=== PATIENT | female | born 1995 | race Caucasian/White ===

== ENCOUNTER 2018-11-25 15:51 | Emergency (ER) | payer OTHER | END 2018-11-25 19:30 | disposition home or self-care (01) | LOC: JER 15:51 ==

== ENCOUNTER 2021-03-19 14:56 | Emergency (ER) | payer OTHER ==
[2021-03-19 15:15] VITALS: BP 106/69; PULSE 76; TEMP 98; BMI 32.9
[2021-03-19] MEDS ORDERED: SODIUM CHLORIDE 1,000 ML IV STA (15:59)
[2021-03-19] MEDS ORDERED: METOCLOPRAMIDE HCL INJECTION 10 MG/2 ML VIAL IVPB ONE (16:36)
[2021-03-19] MEDS ORDERED: FAMOTIDINE 20 MG/50 ML IVPB 20 MG/50 ML MG IVPB ONE ×2 (16:36→16:50)
[2021-03-19] MEDS ORDERED: METOCLOPRAMIDE HCL INJECTION 10 MG/2 ML VIAL ONE (16:50)
[2021-03-19 16:58] LABS: BASO % 0.4 % (0-2.0); HEMATOCRIT 35.8 % (32.4-45.2); HEMOGLOBIN 12.4 GM/dL (10.7-15.3); LYMPH % 26.5 % (8-40); MCH 28.6 pg (25.7-33.7); MCHC 34.7 g/dl (32.0-36.0); MEAN CELL VOLUME 82.3 fl (80-96); MEAN PLT VOLUME 8.7 fl (7.5-11.1); MONO % 4.9 % (3.8-10.2); NEUT % 65.2 % (42.8-82.8); PLATELET COUNT 252 10^3/uL (134-434); RBC 4.34 M/mm3 (3.60-5.2); RDW 12.7 % (11.6-15.6); WHITE BLOOD COUNT 9.9 K/mm3 (4.0-10.0)
[2021-03-19 17:01] LABS: EPI CELLS 26 /uL (0-25.1); HYALINE CASTS 1 /uL (0-3.1); PH,URINE 6.5 (5.0-8.0); URINE APPEARANCE CLEAR; URINE BACTERIA 742 /uL (0-1359); URINE BILIRUBIN NEGATIVE (NEGATIVE); URINE COLOR YELLOW; URINE GLUCOSE (UA) NEGATIVE (NEGATIVE); URINE KETONE 1+ (NEGATIVE); URINE LEUK ESTERASE TRACE (NEGATIVE); URINE NITRITE NEGATIVE (NEGATIVE); URINE PROTEIN NEGATIVE (NEGATIVE); URINE RBC 8 /uL (0-23.9); URINE WBC 11 /uL (0-25.8)
[2021-03-19 17:24] LABS: CALCIUM 9.2 mg/dL (8.5-10.1)
[2021-03-19 17:25] LABS: ALBUMIN 3.8 g/dl (3.4-5.0); BLOOD UREA NITROGEN 6.4 mg/dL (7-18)
[2021-03-19 17:28] LABS: CREATININE 0.5 mg/dL (0.55-1.3)
[2021-03-19 17:29] LABS: BILIRUBIN,TOTAL 0.7 mg/dL (0.2-1); TOT PROT 7.5 g/dl (6.4-8.2)
== END 2021-03-19 19:33 | disposition home or self-care (01) ==
LOC: JER 14:56
PROC: 3E033NZ Introduction of Analgesics, Hypnotics, Sedatives into Peripheral Vein, Percutaneous Approach (ICD-10-PCS; principal; 2021-03-19)
PROC: 3E033GC Introduction of Other Therapeutic Substance into Peripheral Vein, Percutaneous Approach (ICD-10-PCS; 2021-03-19)
PROC: 3E0337Z Introduction of Electrolytic and Water Balance Substance into Peripheral Vein, Percutaneous Approach (ICD-10-PCS; 2021-03-19)
DX: O21.0 Mild hyperemesis gravidarum (principal)
CPT/HCPCS: 36415; 76815-TC; 80053; 81003; 83690; 84702; 85025; 86850; 86900; 86901; 87086; 96361; 96365; 96375; 99284-25; C9803; U0003; U0005

== ENCOUNTER 2021-09-15 18:47 | Inpatient (IN) | payer OTHER ==
[2021-09-15] MEDS: ELECTROLYTE-148 SOLN 1,000 ML IV SCH (19:30)
[2021-09-15] MEDS ORDERED: DINOPROSTONE 10 MG VAGINAL SUPPOSITORY VG ONE (20:20)
[2021-09-15 23:41] VITALS: BMI 38.2
[2021-09-16] MEDS: ELECTROLYTE-148 SOLN 1,000 ML IV SCH ×2 (02:45→11:00)
[2021-09-16] MEDS ORDERED: PROMETHAZINE HCL 25 MG/1 ML VIAL IVPUSH ONE (08:25)
[2021-09-16] MEDS ORDERED: BUTORPHANOL TARTRATE 1 MG/ML VIAL IVPB PRN (08:25)
[2021-09-16] MEDS ORDERED: OXYTOCIN 30 UNITS in 0.9% NS 30 UNIT/500 ML INFUS.BAG IVPB ONE (10:52)
[2021-09-16] MEDS: OXYTOCIN 30 UNITS in 0.9% NS 30 UNIT/500 ML INFUS.BAG IVPB SCH (11:00)
[2021-09-16 12:17] LABS: POC NITRAZINE NEG
[2021-09-17] MEDS: ELECTROLYTE-148 SOLN 1,000 ML IV SCH ×3 (02:03→16:45)
[2021-09-17] MEDS ORDERED: FENTANYL/BUPIVACAINE/NS/PF - PCEA - 50 ML DISP.SYRIN EP ONE (20:03)
[2021-09-17] MEDS: FENTANYL/BUPIVACAINE/NS/PF - PCEA - 50 ML DISP.SYRIN EP SCH (20:30)
[2021-09-17] MEDS ORDERED: NALOXONE HCL 0.4 MG/ML VIAL IVPUSH PRN (20:52)
[2021-09-17] MEDS ORDERED: OXYTOCIN 30 UNITS in 0.9% NS 30 UNIT/500 ML INFUS.BAG IVPB ONE (23:20)
[2021-09-17] MEDS: OXYTOCIN 30 UNITS in 0.9% NS 30 UNIT/500 ML INFUS.BAG IVPB SCH (23:24)
[2021-09-18] MEDS ORDERED: FENTANYL/BUPIVACAINE/NS/PF - PCEA - 50 ML DISP.SYRIN EP ONE (00:21)
[2021-09-18] MEDS: FENTANYL/BUPIVACAINE/NS/PF - PCEA - 50 ML DISP.SYRIN EP SCH ×2 (00:25→21:47)
[2021-09-18] MEDS: ELECTROLYTE-148 SOLN 1,000 ML IV SCH (00:29)
[2021-09-18] MEDS ORDERED: AMPICILLIN - 2 GM in SODIUM CHLORIDE 100 ML IVPB ONE (01:56)
[2021-09-18] MEDS ORDERED: AMPICILLIN SODIUM 2 GM VIAL ONE (01:58)
[2021-09-18] MEDS ORDERED: CITRIC ACID/SODIUM CITRATE 30 ML UNIT-DOSE CUP PO ONE (02:35)
[2021-09-18] MEDS ORDERED: LIDOCAINE HCL/EPINEPHRINE/PF 20 ML VIAL ONE (02:47)
[2021-09-18] MEDS ORDERED: OXYTOCIN 20 UNITS in 0.9% NS 20 UNIT/1,000 ML INFUS.BAG IV ONE (04:02)
[2021-09-18] MEDS ORDERED: ACETAMINOPHEN INJECTION 100 ML IVPB ONE (04:02)
[2021-09-18] MEDS ORDERED: IBUPROFEN 800 MG/8 ML IJ IVPB PRN (04:20)
[2021-09-18] MEDS ORDERED: METHYLERGONOVINE MALEATE 0.2 MG/1 ML AMP IM PRN (04:20)
[2021-09-18] MEDS ORDERED: ACETAMINOPHEN 325 MG TABLET (FP) PO PRN (04:20)
[2021-09-18] MEDS ORDERED: ACETAMINOPHEN 1000 MG/100 ML BAG IVPB PRN (04:23)
[2021-09-18] MEDS ORDERED: OXYTOCIN 20 UNITS in 0.9% NS 20 UNIT/1,000 ML INFUS.BAG IV SCH (04:30)
[2021-09-18] MEDS: AMPICILLIN - 1 GM in SODIUM CHLORIDE 100 ML IVPB SCH ×5 (06:12→22:16)
[2021-09-18 07:00] LABS: CORD BASE EXCESS -5.8 mmol/L (0-2); CORD HCO3 21.9 mmHg (20-29); CORD PCO2 49.8 mmHg (30-78); CORD pH 7.261 (7.14-7.44)
[2021-09-18 07:00] LABS: CORD BASE EXCESS -5.6 mmol/L (0-2); CORD HCO3 22.1 mmHg (20-29); CORD PCO2 50.2 mmHg (30-78); CORD pH 7.262 (7.14-7.44)
[2021-09-18] MEDS: CLINDAMYCIN 600MG PREMIX IVPB 600 MG/50 ML BAG IVPB SCH ×2 (09:30→17:27)
[2021-09-18] MEDS: PRENATAL VITAMINS W/ FOLIC ACID TABLET (FP) PO SCH (09:48)
[2021-09-18] MEDS: FERROUS SO4 325 MG TABLET (FP) PO SCH ×2 (09:48→22:23)
[2021-09-18] MEDS: SIMETHICONE 80 MG TAB.CHEW (FP) PO PRN ×2 (16:52→22:23)
[2021-09-18] MEDS ORDERED: ceFAZolin 2 GRAM PREMIX BAG IVPB STA (17:40)
[2021-09-18] MEDS ORDERED: CEFAZOLIN 2 GM in DEXTROSE 5%-WATER - 100 ML IVPB ONE (18:00)
[2021-09-18 21:43] LABS: BASO % 0.2 % (0-2.0); EOS % 0.6 % (0-4.5); HEMATOCRIT 26.3 % (32.4-45.2); HEMOGLOBIN 8.7 GM/dL (10.7-15.3); LYMPH % 8.3 % (8-40); MCH 24.2 pg (25.7-33.7); MEAN CELL VOLUME 73.1 fl (80-96); MONO % 3.2 % (3.8-10.2); NEUT % 87.7 % (42.8-82.8); PLATELET COUNT 191 10^3/uL (134-434); RBC 3.59 M/mm3 (3.60-5.2); RDW 15.1 % (11.6-15.6); WHITE BLOOD COUNT 10.3 K/mm3 (4.0-10.0)
[2021-09-18] MEDS: IBUPROFEN 600 MG TABLET (FP) PO PRN (22:23)
[2021-09-19] MEDS: CLINDAMYCIN 600MG PREMIX IVPB 600 MG/50 ML BAG IVPB SCH ×3 (01:05→18:10)
[2021-09-19] MEDS: SIMETHICONE 80 MG TAB.CHEW (FP) PO PRN ×3 (04:05→21:32)
[2021-09-19] MEDS: IBUPROFEN 600 MG TABLET (FP) PO PRN ×3 (04:05→21:32)
[2021-09-19] MEDS ORDERED: BISACODYL 10 MG SUPP.RECT RC PRN (04:20)
[2021-09-19 07:36] LABS: BASO % 0.1 % (0-2.0); EOS % 0.6 % (0-4.5); HEMATOCRIT 25.9 % (32.4-45.2); HEMOGLOBIN 8.5 GM/dL (10.7-15.3); LYMPH % 7.7 % (8-40); MCH 24.3 pg (25.7-33.7); MEAN CELL VOLUME 73.6 fl (80-96); MEAN PLT VOLUME 8.4 fl (7.5-11.1); MONO % 3.2 % (3.8-10.2); NEUT % 88.4 % (42.8-82.8); PLATELET COUNT 195 10^3/uL (134-434); RBC 3.52 M/mm3 (3.60-5.2); WHITE BLOOD COUNT 9.9 K/mm3 (4.0-10.0)
[2021-09-19] MEDS ORDERED: oxyCODONE HCL 5 MG TABLET PO PRN ×2 (08:00)
[2021-09-19] MEDS: FERROUS SO4 325 MG TABLET (FP) PO SCH ×2 (09:41→21:33)
[2021-09-19] MEDS: PRENATAL VITAMINS W/ FOLIC ACID TABLET (FP) PO SCH (09:41)
[2021-09-19] MEDS: SENNOSIDES/DOCUSATE COMBO (SENNA PLUS) TABLET (UD) PO PRN (21:32)
[2021-09-20] MEDS: FERROUS SO4 325 MG TABLET (FP) PO SCH ×2 (09:36→21:22)
[2021-09-20] MEDS: PRENATAL VITAMINS W/ FOLIC ACID TABLET (FP) PO SCH (09:36)
[2021-09-20] MEDS: SIMETHICONE 80 MG TAB.CHEW (FP) PO PRN ×2 (09:36→18:43)
[2021-09-20] MEDS: IBUPROFEN 600 MG TABLET (FP) PO PRN ×2 (09:36→18:43)
[2021-09-20] MEDS: SENNOSIDES/DOCUSATE COMBO (SENNA PLUS) TABLET (UD) PO PRN (21:23)
[2021-09-21] MEDS: IBUPROFEN 600 MG TABLET (FP) PO PRN (07:44)
[2021-09-21] MEDS: SIMETHICONE 80 MG TAB.CHEW (FP) PO PRN (07:45)
[2021-09-21 08:59] VITALS: BP 117/59; PULSE 75; TEMP 97.7
[2021-09-21] MEDS: PRENATAL VITAMINS W/ FOLIC ACID TABLET (FP) PO SCH (09:37)
[2021-09-21] MEDS: FERROUS SO4 325 MG TABLET (FP) PO SCH (09:37)
[2021-09-21 09:39] LABS: BASO % 0.4 % (0-2.0); EOS % 3.2 % (0-4.5); HEMATOCRIT 26.5 % (32.4-45.2); HEMOGLOBIN 8.9 GM/dL (10.7-15.3); LYMPH % 12.4 % (8-40); MCH 24.4 pg (25.7-33.7); MCHC 33.5 g/dl (32.0-36.0); MEAN CELL VOLUME 73.1 fl (80-96); MEAN PLT VOLUME 7.6 fl (7.5-11.1); MONO % 3.8 % (3.8-10.2); NEUT % 80.2 % (42.8-82.8); PLATELET COUNT 257 10^3/uL (134-434); RBC 3.63 M/mm3 (3.60-5.2); RDW 15.6 % (11.6-15.6); WHITE BLOOD COUNT 7.3 K/mm3 (4.0-10.0)
== END 2021-09-21 12:40 | disposition home or self-care (01) | DRG 540 ==
LOC: JLDR 18:47 → J3W 09-18 05:42
PROVIDERS: ADMIT Obstetrics & Gynecology; ATTEND Obstetrics & Gynecology
PROC: 3E0P7VZ Introduction of Hormone into Female Reproductive, Via Natural or Artificial Opening (ICD-10-PCS; 2021-09-16)
PROC: 10D00Z1 Extraction of Products of Conception, Low, Open Approach (ICD-10-PCS; principal; 2021-09-18)
DX: O76 Abnormality in fetal heart rate and rhythm complicating labor and delivery (principal); O24.425 Gestational diabetes mellitus in childbirth, controlled by oral hypoglycemic drugs; O75.2 Pyrexia during labor, not elsewhere classified; O86.4 Pyrexia of unknown origin following delivery; O86.12 Endometritis following delivery; O99.214 Obesity complicating childbirth; E66.9 Obesity, unspecified; O62.9 Abnormality of forces of labor, unspecified; O36.63X0 Maternal care for excessive fetal growth, third trimester, not applicable or unspecified; Z3A.40 40 weeks gestation of pregnancy; Z37.0 Single live birth
CPT/HCPCS: 36415; 36600; 82803; 82962; 83986-QW; 85025; 87040; 87086; 88307-TC

== ENCOUNTER 2023-11-16 20:33 | Emergency (ER) | payer OTHER ==
[2023-11-16 20:41] VITALS: BP 108/68; PULSE 102; RESP 16; TEMP 98.7; BMI 34.9
[2023-11-16] MEDS ORDERED: ONDANSETRON 4 MG/2 ML VIAL ONE (21:43)
[2023-11-16] MEDS ORDERED: ACETAMINOPHEN INJECTION 100 ML IVPB ONE (21:43)
[2023-11-16] MEDS: ACETAMINOPHEN 1000 MG/100 ML BAG IVPB ONE (21:50)
[2023-11-16] MEDS: ONDANSETRON 4 MG/2 ML VIAL IVPUSH ONE (21:51)
[2023-11-16 21:55] LABS: HEMATOCRIT 43.1 % (32.4-45.2); MCHC 34.7 g/dl (32.0-36.0); MEAN CELL VOLUME 83.5 fl (80-96); MEAN PLT VOLUME 8.5 fl (7.5-11.1); PLATELET COUNT 217 10^3/uL (134-434); RBC 5.16 M/mm3 (3.60-5.2); RDW 13.4 % (11.6-15.6); WHITE BLOOD COUNT 7.7 K/mm3 (4.0-10.0)
[2023-11-16 22:19] LABS: POTASSIUM 3.9 mmol/L (3.5-5.1)
[2023-11-16 22:21] LABS: ALBUMIN 3.7 g/dl (3.4-5.0); BLOOD UREA NITROGEN 9.8 mg/dL (7-18); CALCIUM 8.8 mg/dL (8.5-10.1)
[2023-11-16 22:24] LABS: CREATININE 0.6 mg/dL (0.55-1.3)
[2023-11-16 22:26] LABS: BILIRUBIN,TOTAL 0.9 mg/dL (0.2-1); TOT PROT 7.8 g/dl (6.4-8.2)
[2023-11-16 23:21] LABS: ANISOCYTOSIS 0; MACROCYTOSIS 0; PLATELET ESTIMATE NORMAL
== END 2023-11-16 23:07 | disposition home or self-care (01) ==
LOC: JER 20:33
PROC: 3E033NZ Introduction of Analgesics, Hypnotics, Sedatives into Peripheral Vein, Percutaneous Approach (ICD-10-PCS; principal; 2023-11-16)
PROC: 3E033GC Introduction of Other Therapeutic Substance into Peripheral Vein, Percutaneous Approach (ICD-10-PCS; 2023-11-16)
DX: R74.8 Abnormal levels of other serum enzymes (principal); R10.12 Left upper quadrant pain; M54.6 Pain in thoracic spine; R19.7 Diarrhea, unspecified
CPT/HCPCS: 36415; 80053; 83690; 84703; 85025; 99284-25; J0131